=== PATIENT | male | born 1935 | race African-American/Black ===

== ENCOUNTER 2019-08-26 20:10 | Emergency (ER) | payer OTHER ==
[~2019-08-26] VITALS: Ht 170.2 cm; Wt 96.6 kg
[~2019-08-26 20:10] MED LIST: ACTOS15 MG; ASPIRIN81 M1; CRESTOR5 MG; DILTIA XT240 MG; ENALAPRIL MALEA20 MG; GABAPENTIN100 MG; HUMULIN N100 U/ML; HYDROCHLOROTHIA25 MG; INSULIN SY; METFORMIN HCL500 MG; ULTRACET PO; [UNRECOGNIZED DRUG - OTHER]
[2019-08-26] MEDS ORDERED: CLOTRIMAZOLE-BE15 GM TOP (21:03)
== END 2019-08-26 21:29 | disposition home or self-care (01) ==
LOC: ER 20:10
DX: M54.5 Low back pain (principal)